=== PATIENT | female | born 1965 | race Caucasian/White ===

== ENCOUNTER → 2023-04-10 | Day surgery (SDC) | payer OTHER ==
[~2023-04-10] VITALS: Ht 167.6 cm; Wt 117.9 kg
[~2023-04-10] MED LIST: KETO10TA2 PO; LIPITOR20 MG; SYNTHROID50 MCG
== END | disposition home or self-care (01) ==
LOC: ADM 04-04 11:30 → CIR.AMB 04-05 11:30
PROVIDERS: ATTEND Orthopaedic Surgery Sports Medicine
DX: S82.851A Displaced trimalleolar fracture of right lower leg, initial encounter for closed fracture (principal); Z20.822 Contact with and (suspected) exposure to COVID-19; E03.9 Hypothyroidism, unspecified; E78.5 Hyperlipidemia, unspecified
CPT/HCPCS: 27822; L8699